=== PATIENT | male | born 1960 | race Caucasian/White ===

== ENCOUNTER 2017-06-12 16:31 | Observation (INO) | payer OTHER ==
[~2017-06-12] VITALS: Ht 185.4 cm; Wt 93.6 kg
[2017-06-12] MEDS ORDERED: MIRT15TA2 PO (16:43)
[2017-06-12] MEDS ORDERED: ESCI10TA17 PO (16:43)
[2017-06-12] MEDS ORDERED: ONDANSETRON INJ 2 MG/ML 2 ML VIAL IV STA (16:52)
[2017-06-12] MEDS ORDERED: SODIUM CHLORIDE 0.9% 1000ML 1,000 ML IV STA (16:52)
[2017-06-12] MEDS ORDERED: OPTIRAY 320 IV PRN (17:00)
[2017-06-12] MEDS: HYDROmorphone INJ 1 MG/ML SYR IV PRN ×2 (17:10→17:56)
[2017-06-12 17:14] LABS: URINE APPEARANCE CLEAR (CLEAR); URINE BILIRUBIN NEG (NEG); URINE COLOR YELLOW; URINE NITRITE NEG (NEG); URINE PH 5.5 (4.5-7.5); UROBILINOGEN NEG (NEG)
[2017-06-12 17:16] LABS: BASO % 0.2 %; BASO ABS # 0.02 K/uL (0-0.2); COMPLETE YES; EOS % 0.3 %; HEMATOCRIT 45.1 % (42-52); IG% 0.5 %; LYMPH % 11.3 %; LYMPH ABS # 1.38 K/uL (1.2-3.4); MEAN CELL VOLUME 95.1 fL (80-100); MEAN CORPUSCULAR HEMOGLOBIN 32.3 pg (25-34); MEAN CORPUSCULAR HGB CONC 33.9 g/dl (32-36); MEAN PLATELET VOLUME 9.6 fL (7.4-10.4); MONO % 5.3 %; NEUT % 82.4 %; PLATELET COUNT 213 K/uL (130-400); RED BLOOD COUNT 4.74 M/uL (4.7-6.1); WHITE BLOOD COUNT 12.18 K/uL (4.8-10.8)
[2017-06-12 17:16] LABS: ISTAT CREATININE 1.1 mg/dl (0.6-1.3); ISTAT IONIZED CALCIUM 1.15 mmol/l (1.12-1.32)
[2017-06-12 17:19] LABS: MANUAL MICROSCOPIC REQUIRED? NO; REVIEW REQ? NO
[2017-06-12 17:47] LABS: ALKALINE PHOSPHATASE 80 U/L (45-117); ALT/SGPT 36 U/L (12-78); AST/SGOT 46 U/L (15-37)
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
[2017-06-12] MEDS ORDERED: CEPHALEXIN MONOHYDRATE 250 MG CAP PO ONE (19:45)
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
[2017-06-12] MEDS ORDERED: IV FLUIDS COMPLETED PRN (21:30)
[2017-06-12] MEDS ORDERED: ACETAMINOPHEN 325 MG TAB PO PRN (21:30)
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
[2017-06-12 21:43] VITALS: BP 143/84; PULSE 62; TEMP 36.8; O2SAT 93; Ht 185.4 cm; Wt 93.6 kg
[2017-06-12 21:45] VITALS: BP 143/84; PULSE 62; TEMP 36.8; O2SAT 93
[2017-06-12] MEDS ORDERED: MIRTAZAPINE TAB 15 MG TAB PO SCH (22:00)
[2017-06-12] MEDS: SODIUM CHLORIDE 0.9% 1000ML 1,000 ML IV SCH (22:25)
[2017-06-12 23:17] VITALS: BP 118/75; PULSE 67; TEMP 36.9; O2SAT 92
[2017-06-13] MEDS: HYDROmorphone INJ 0.5 MG/0.5 ML SYR IV PRN ×3 (00:30→12:46)
[2017-06-13] MEDS: KETOROLAC TROMETHAMINE 30 MG/ML VIAL IV PRN ×2 (03:49→11:05)
[2017-06-13] MEDS: SODIUM CHLORIDE 0.9% 1000ML 1,000 ML IV SCH (05:43)
[2017-06-13 05:57] LABS: BASO % 0.3 %; BASO ABS # 0.02 K/uL (0-0.2); COMPLETE YES; EOS % 0.3 %; HEMATOCRIT 37.1 % (42-52); IG% 0.1 %; LYMPH % 15.7 %; MEAN CELL VOLUME 95.1 fL (80-100); MEAN CORPUSCULAR HEMOGLOBIN 32.3 pg (25-34); MEAN PLATELET VOLUME 9.5 fL (7.4-10.4); MONO % 11.8 %; NEUT % 71.8 %; PLATELET COUNT 164 K/uL (130-400); WHITE BLOOD COUNT 7.01 K/uL (4.8-10.8)
[2017-06-13 06:38] LABS: BUN/CREATININE RATIO 13.2 (10-20); CREATININE 0.9 mg/dl (0.60-1.40); POTASSIUM 3.6 mmol/L (3.5-5.1)
[2017-06-13 07:35] VITALS: BP 107/64; PULSE 59; TEMP 36.5; O2SAT 95
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
[2017-06-13] MEDS ORDERED: NURSING VERBAL MED ORDER ONE ×2 (12:15)
[2017-06-13] MEDS ORDERED: AMOX875T PO (12:18)
[2017-06-13] MEDS ORDERED: HYDR-5688 PO (12:18)
--- NOTE | 2017-06-13 12:21 | Discharge Instructions ---
Discharge Instructions Date of Service Jun 13, 2017. Admission Reason for Admission: Rib Pain On Left Side Discharge Discharge Diagnosis / Problem: fall, rib an dthoracic spine non displaced fx Discharge Goals Goal(s): Decrease discomfort, Improve function Activity Recommendations Activity Limitations: resume your previous activity (as tolerated) Lifting Limitations: no more than 5 pounds (for next 6 weeks) . Instructions / Follow-Up Instructions / Follow-Up FOLLOWUP WITH FAMILY DOCTOR WITHIN A WEEK FOLLOWUP WITH ORTHOPEDICS WITHIN A WEEK Current Hospital Diet Patient's current hospital diet: AHA Diet (Heart Healthy) Discharge Diet Recommended Diet: AHA Diet (Heart Healthy) Pending Studies Studies pending at discharge: no Medical Emergencies . Who to Call and When: Medical Emergencies: If at any time you feel your situation is an emergency, please call 911 immediately. . Non-Emergent Contact Non-Emergency issues call your: Primary Care Provider . . "Provider Documentation" section prepared by Gomez Saldivar. . VTE Core Measure Inpt VTE Proph given/why not?: SCD's
[2017-06-13] MEDS ORDERED: HYDROCODONE/ACETAMOPHEN 5/325MG TAB PO PRN (12:30)
[2017-06-13 12:32] VITALS: BP 107/64; PULSE 59; TEMP 36.5; O2SAT 95
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
[2017-06-13] MEDS ORDERED: ESCITALOPRAM OXALATE 10 MG TAB PO SCH (21:00)
== END 2017-06-13 14:05 | disposition home or self-care (01) ==
LOC: EDBD 16:31 → C.EDC 16:33 → C.3E 20:24 → ENRESERV 20:45
PROVIDERS: ADMIT Internal Medicine; ATTEND Internal Medicine
DX: S22.051A Stable burst fracture of T5-T6 vertebra, initial encounter for closed fracture (principal); S22.061A Stable burst fracture of T7-T8 vertebra, initial encounter for closed fracture; S22.41XA Multiple fractures of ribs, right side, initial encounter for closed fracture; S92.414A Nondisplaced fracture of proximal phalanx of right great toe, initial encounter for closed fracture; V28.0XXA Motorcycle driver injured in noncollision transport accident in nontraffic accident, initial encounter; R03.0 Elevated blood-pressure reading, without diagnosis of hypertension; F32.9 Major depressive disorder, single episode, unspecified